=== PATIENT | female | born 1950 | race Caucasian/White ===

== ENCOUNTER 2016-09-18 20:26 | Emergency (ER) | payer BC ==
--- NOTE | ~2016-09-18 | ER ---
PATIENT'S NAME: KATELYN PETERSON [facility] AGE: 66 Y [address] ROOM: [place] [id number] LOCATION: [facility] ADMIT DATE: 09/18/2016 ER/Outpatient Report DISCHARGE DATE: 09/18/2016 FAMILY PHYSICIAN: Physician, Unknown ATTENDING PHYSICIAN: Trent Mitchell Admission date and time documented in the medical record. I saw the patient at 2115 hours. CHIEF COMPLAINT: Headache. HISTORY OF PRESENT ILLNESS: The patient is a 66-year-old female, who comes in with a right frontal temporal headache. This started at 0400 hours this morning. It has been progressively worsening. She has nausea, vomiting, unable to keep Imitrex down. Unable to keep any of her nausea medications down. Her nausea medication is outdated. She does have a history of headaches, this is similar to the headaches that she gets frequently. No new changes, no neuro changes, little bit lightheaded and dizzy. No recent colds, coughs, flus, fever, chills, or sweats. No chest pain, shortness of breath. No abdominal pain. No diarrhea. No urinary frequency, urgency, or dysuria. No neck, eyes, ears, nose, throat, or spine pain. No joint or muscle swelling, redness, or pain. No skin eruptions or rash. She has a history of headaches, but no other neuro changes. Does have depression, anxiety, but no psychosis. No endocrine problems. HOME MEDICATIONS: See attached medication list. ALLERGIES: NONE. SOCIAL HISTORY: Nonsmoker, nondrinker. SIGNIFICANT PAST MEDICAL HISTORY: Headaches, gastroesophageal reflux, anxiety, and depression. OPERATIONS: Esophagogastroduodenoscopy. REVIEW OF SYSTEMS: All systems reviewed by me are negative with the exception of those discussed in the history of present illness. PATIENT'S NAME: KATELYN PETERSON [facility] AGE: 66 Y [address] ROOM: [place] [id number] LOCATION: [facility] ADMIT DATE: 09/18/2016 ER/Outpatient Report DISCHARGE DATE: 09/18/2016 FAMILY PHYSICIAN: , Unknown ATTENDING PHYSICIAN: Trent Mitchell PHYSICAL EXAMINATION: VITAL SIGNS: Temperature 98.6, pulse 90 and regular, respirations 16, blood pressure 114/65, O2 saturation on room air is 98%. HEAD: Normocephalic. EYES: Extraocular muscles intact. PERRL. Sclerae and conjunctivae clear, nonicteric. EARS: Clear TMs bilaterally. NOSE: Clear. THROAT: Clear. Mucous membranes moist. Teeth, jaw intact. NECK: No nuchal rigidity. No thyromegaly or cervical adenopathy. No tenderness. SPINE: Negative. LUNGS: Clear. No rales, rhonchi, or wheezes. HEART: Regular. Pulses are palpable. ABDOMEN: Soft. Active bowel tones. NEUROVASCULAR: Intact. SKIN: Clear. EXTREMITIES: Intact. EMERGENCY DEPARTMENT COURSE: I did give the patient 1 L normal saline IV in the emergency room. Benadryl 50 mg IV in the emergency room. Compazine 10 mg followed by Compazine 10 mg 10 minutes later plus Toradol 30 mg IV. IMPRESSION: Headache. PLAN: The patient dismissed home. Observation. Activity as tolerated. Rest. Avoid stimuli. Did give her prescription for Zofran ODT tabs 4 mg as needed for nausea, vomiting. She is to continue her present home medications and care, follow up with personal physician as needed. Discussion ensued with the patient's in regard to my findings and recommendations, he understands. MD ADILENE SHANKAR/modl /[id number] d: 09/19/16 0219 t: 09/25/16 0613, OUTPATIENT REPORT
== END 2016-09-18 22:32 | disposition disaster alternative care site (69) ==
LOC: GMED 20:26
DX: R51 Headache (principal); K21.9 Gastro-esophageal reflux disease without esophagitis; F41.9 Anxiety disorder, unspecified; F32.9 Major depressive disorder, single episode, unspecified
CPT/HCPCS: J0780; J1200; J1885; J7030